=== PATIENT | female | born 1970 | race Caucasian/White ===

== ENCOUNTER 2018-03-03 11:53 | Inpatient (IN) ==
--- NOTE | 2018-03-04 02:43 | P.HPIM ---
History of Present Illness Primary Care Physician: Everardo Romero History of Present Illness: 47-year-old female with a history of anxiety and asthma presented to the ED with complaints of abdominal pain. Patient states she had sudden abdominal pain after eating a Chick-rosita-A sandwich in her right upper quadrant with radiation to her back, 7/10, sharp, constant, worse with food better with rest with no associated symptoms. She denies any chest pain, shortness of breath, fever or chills. Inpatient Certification: I certify that the inpatient services were ordered in accordance with Medicare regulations governing the order. This includes certification that hospital inpatient services are reasonable and necessary and in the case of services not specified as inpatient-only under 42 CFR 419.22(n), that they are appropriately provided as inpatient services in accordance to with the 2-midnight benchmark under 43 CFR 412.3(e) Estimated Total Length of Stay (Days): 2 Plans for Post Hospital Care: Home Review of Systems All other systems reviewed negative except as stated in HPI PMFSH - History History Provided By: Patient - Medical History Medical History: Medical History (Last Reviewed 03/04/18 @ 02:44 by Ines Reyna RN) Anxiety Asthma Encounter for Essure implantation Uterine fibroid - Surgical History Surgical History: Surgical History (Last Reviewed 03/04/18 @ 02:44 by Ines Reyna RN) H/O section History of endometrial ablation - Social History I have reviewed the patient's Social History: Yes - Tobacco History Second Hand Smoke Exposure: No Smoking Status: Never smoker - Alcohol History How Often Do You Have a Drink Containing Alcohol: Never - Substance Use History Substance History: No History of Abuse - Immunization History Tetanus Immunization: Unsure Hx Influenza Vaccine This Season: No Medications and Allergies Active Medications: Active Medications Sodium Chloride (Ns Inj) 1,000 mls @ 100 mls/hr IV.CONT .Q10H RONEL Ondansetron HCl (Zofran Inj) 4 mg IV.PUSH Q6H PRN PRN Reason: NAUSEA OR VOMITING Allergies Allergy/AdvReac Type Severity Reaction Status Date / Time No Known Allergies Allergy Unverified 03/03/18 12:08 Home Medications Medication Instructions Recorded Confirmed Type No Known Home Medications 03/03/18 03/03/18 History Exam Vital signs: Intake & Output 03/03/18 03/03/18 03/04/18 06:59 18:59 06:59 Other: Date of Last Bowel Movement 03/02/18 Narrative: GENERAL: This is a well-nourished, well-developed patient, in no apparent distress. CARDIOVASCULAR: Regular rate and rhythm without murmurs, gallops, or rubs. RESPIRATORY: Clear to auscultation. Breath sounds equal bilaterally. No wheezes , rales, or rhonchi. GASTROINTESTINAL: Abdomen soft, RUQ tenderness, nondistended. Normal active bowel sounds MUSCULOSKELETAL: Extremities without clubbing, cyanosis, or edema. NEURO: Alert & Oriented x4 to person, place, time, situation. Moves all ext x4 Caprini VTE Risk Assessment Caprini VTE Risk Assessment: No/Low Risk (score <= 1) Caprini Risk Assessment Model: Point Value = 1 Point Value = 2 Point Value = 3 Point Value = 5 Age 41-60 Minor surgery BMI > 25 kg/m2 Swollen legs Varicose veins or History of unexplained or recurrent spontaneous Oral contraceptives or hormone replacement Sepsis (< 1 month) Serious lung disease, including pneumonia (< 1 month) Abnormal pulmonary function Acute myocardial infarction Congestive heart failure (< 1 month) History of inflammatory bowel disease Medical patient at bed rest Age 61-74 Arthroscopic surgery Major open surgery (> 45 min) Laparoscopic surgery (> 45 min) Malignancy Confined to bed (> 72 hours) Immobilizing plaster cast Central venous access Age >= 75 History of VTE Family history of VTE Factor V Leiden Prothrombin [id number] Lupus anticoagulant Anticardiolipin antibodies Elevated serum homocysteine Heparin-induced thrombocytopenia Other congenital or acquired thrombophilia Stroke (< 1 month) Elective arthroplasty Hip, pelvis, or leg fracture Acute spinal cord injury (< 1 month) Prophylaxis Regimen: Total Risk Factor Score Risk Level Prophylaxis Regimen 0-1 Low Early ambulation 2 Moderate Order ONE of the following: *Sequential Compression Device (SCD) *Heparin 5000 units SQ BID 3-4 Higher Order ONE of the following medications: *Heparin 5000 units SQ TID *Enoxaparin/Lovenox 40 mg SQ daily (WT < 150 kg, CrCl > 30 mL/min) *Enoxaparin/Lovenox 30 mg SQ daily (WT < 150 kg, CrCl > 10-29 mL/min) *Enoxaparin/Lovenox 30 mg SQ BID (WT < 150 kg, CrCl > 30 mL/min) AND/OR *Sequential Compression Device (SCD) 5 or more Highest Order ONE of the following medications: *Heparin 5000 units SQ TID (Preferred with Epidurals) *Enoxaparin/Lovenox 40 mg SQ daily (WT < 150 kg, CrCl > 30 mL/min) *Enoxaparin/Lovenox 30 mg SQ daily (WT < 150 kg, CrCl > 10-29 mL/min) *Enoxaparin/Lovenox 30 mg SQ BID (WT < 150 kg, CrCl > 30 mL/min) AND *Sequential Compression Device (SCD) Assessment and Plan - Plan Cholecystitis Abdominal CT reviewed and shows abnormal gallbladder with findings concerning for cholecystitis Consult to general surgery N.p.o., IVF Pain management with IV morphine DVT prophylaxis: SCDs Discussed Condition With: Patient and RN H&P: Quality - VTE Deep Vein Thrombosis/Pulmonary Embolism Present on Admission: No
[2018-03-04] MEDS: Sod Chloride 0.9% Inj 1,000 ML IV.CONT SCH ×2 (03:28→12:36)
[2018-03-04] MEDS: Morphine Inj 4 MG/ML Vial IV.PUSH PRN ×2 (04:51→16:25)
--- NOTE | 2018-03-04 11:30 | P.PN ---
Subjective Interval history: Doing well overnight, NPO since admission. Reports pain well controlled with pain meds. Reports pain is sharping, starts in RUQ and radiates to back. Denies emesis, diarrhea, fever and chills. +nausea Physical Exam Vital signs: Vital Signs 03/04/18 04:00 03/04/18 04:15 03/04/18 08:00 Temperature 98 F 97.8 F Pulse Rate 58 L 59 L Respiratory Rate 16 14 20 Blood Pressure 110/58 L 116/64 Pulse Oximetry 99 98 Intake & Output 03/03/18 03/04/18 03/04/18 18:59 06:59 18:59 Other: # Voids 1 Date of Last Bowel Movement 03/02/18 Narrative: GENERAL: well nourished female, in NAD, pleasant SKIN: Warm and dry. HEENT: Normocephalic. No scleral icterus. No injection or drainage. MOM. NECK: Supple, trachea midline. No JVD or lymphadenopathy. CARDIOVASCULAR: Regular rate and rhythm without murmurs, gallops, or rubs. RESPIRATORY: Breath sounds equal bilaterally. No accessory muscle use. GASTROINTESTINAL: Abdomen soft, non-tender, nondistended. +Chavarria's sign. Neg rebound tenderness. MUSCULOSKELETAL: No cyanosis, or edema. BACK: Nontender without obvious deformity. No CVA tenderness. Assessment and Plan - Plan 47 y/o F with admitted for IP mgmt of Cholecystitis, HD#1 1. Cholecystitis: Abdominal CT: abnormal gallbladder with findings concerning for cholecystitis Consult to general surgery- surgery today NPO since midnight Morphine IV PRN pain CBC/CMP in AM DVT prophylaxis: SCD's Code Status: full Discussed Condition With: patient
--- NOTE | 2018-03-04 13:02 | P.CON ---
History of Present Illness Consult date: 03/04/18 Reason for Consult: Acute cholecystitis Primary Care Provider: Everardo Romero History of Present Illness: Patient is a 47-year-old female who developed severe abdominal pain after eating a Chick-rosita-A sandwich. The pain is in her right upper quadrant radiating through to the back. She reported nausea but no emesis and no change in bowel habits. She is not sure whether she has had symptoms like this in the past but may simply have had some heartburn. CT scan performed and [place] demonstrates contracted and thickened gallbladder wall with a calcified gallstone in the neck of the gallbladder. Findings are concerning for cholecystitis. The patient also has bilateral ovarian cysts 2.2 cm on the left and 2 cm on the right. There is no acute inflammation. Review of Systems All other systems reviewed negative except as stated in HPI PMFSH - History History Provided By: Patient - Medical History Medical History: Medical History (Last Reviewed 03/04/18 @ 12:58 by Lanre Manzano MD) Anxiety Asthma Encounter for Essure implantation Uterine fibroid - Surgical History Surgical History: Surgical History (Last Reviewed 03/04/18 @ 12:59 by Lanre Manzano MD) H/O section History of endometrial ablation - Family History Family History: Family History (Last Reviewed 03/04/18 @ 12:59 by Lanre Manzano MD) Mother HLD (hyperlipidemia) Diabetes HTN (hypertension) Father HLD (hyperlipidemia) Father HLD (hyperlipidemia) - Social History I have reviewed the patient's Social History: Yes - Tobacco History Second Hand Smoke Exposure: No Smoking Status: Never smoker - Alcohol History How Often Do You Have a Drink Containing Alcohol: Never - Substance Use History Substance History: No History of Abuse - Immunization History Tetanus Immunization: Unsure Hx Influenza Vaccine This Season: No Medications and Allergies Active Medications: Active Medications Sodium Chloride (Ns Inj) 1,000 mls @ 100 mls/hr IV.CONT .Q10H RONEL Last Admin: 03/04/18 12:36 Dose: 100 mls/hr Morphine Sulfate (Morphine Inj) 2 mg IV.PUSH Q3H PRN PRN Reason: pain 1 to 10 Last Admin: 03/04/18 04:51 Dose: 2 mg Ondansetron HCl (Zofran Inj) 4 mg IV.PUSH Q6H PRN PRN Reason: NAUSEA OR VOMITING Allergies Allergy/AdvReac Type Severity Reaction Status Date / Time No Known Allergies Allergy Verified 03/04/18 06:30 Home Medications Medication Instructions Recorded Confirmed Type No Known Home Medications 03/03/18 03/04/18 History Physical Exam Vital signs: Vital Signs 03/04/18 04:00 03/04/18 04:15 03/04/18 08:00 Temperature 98 F 97.8 F Pulse Rate 58 L 59 L Respiratory Rate 16 14 20 Blood Pressure 110/58 L 116/64 Pulse Oximetry 99 98 Intake & Output 03/03/18 03/04/18 03/04/18 18:59 06:59 18:59 Intake Total 1000 / 1000 Balance 1000 / 1000 Intake: IV 1000 / 1000 NS Inj 1,000 ML @ 100 mls/hr IV 1000 / 1000 .CONT .Q10H RONEL Rx#:[id number] Other: # Voids 1 Date of Last Bowel Movement 03/02/18 - Constitutional mild distress, obese - Routine HEENT Exam Head: Present: normocephalic, atraumatic - Routine Neck Exam Present: supple - Routine Respiratory Exam Present: CTA bilaterally - Routine Cardiovascular Exam Present: RRR - Routine Abdominal Exam Present: soft, tenderness (Right upper quadrant, epigastrium, right lower quadrant, CVA tenderness), guarding (Right upper quadrant and epigastrium) - Routine Neurological Exam Present: alert, oriented X3, CN II-XII intact - Detailed Neurological Exam: Coma Scale Verbal Response: Oriented Motor Response: Obey commands - Routine Psychiatric Exam Present: normal affect, cooperative, good insight, good judgment, anxious Assessment and Plan - Assessment (1) Acute cholecystitis due to biliary calculus Code(s): K80.00 - Calculus of gallbladder with acute cholecystitis without obstruction Status: Acute Plan: Laparoscopic cholecystectomy, possible intraoperative cholangiogram, possible open cholecystectomy. I have discussed risks of the procedure with the patient including but not limited to: Bleeding, infection, bile duct injury, bowel injury, possible need for postoperative endoscopy with ERCP, possible need for drainage, possible need for reoperation. I discussed remedies, consequences, convalescence, and alternatives. She vocalizes understanding and agrees to proceed. We will attempt to perform this today so that she may be discharged in a timely fashion. - Plan Discussed Condition With: Patient Nurse [id number] - Attending Attestation I attest that I had a [id number] encounter with the patient on the same day, and personally performed and documented my assessment and findings in the medical record. The following services were provided during this hospital visit: Chart data review, vital sign assessments/reviewing monitor data Review of consultation notes if present Medication orders/review and/or management Ordering and/or reviewing lab tests Ordering and/or interpreting/reviewing x-rays and/or diagnostic studies Care of the patient and discussion of the patient with the care team Documentation time To help prompt me to consider important information that might be impacting today's encounter and assessment, Information from prior notes written by myself or my colleagues may have been "brought forward/copy and pasted" into today's note.
[2018-03-04] MEDS ORDERED: Bupivacaine/Epinephrine Inj 0.25% 50 ML Vial ONE (13:19)
[2018-03-04] MEDS ORDERED: Sodium Chlor 0.9% Inj 500 ML IV.CONT ONE (13:45)
[2018-03-04] MEDS ORDERED: Metoprolol Tartrate 25 MG Tablet PO ONE (13:45)
[2018-03-04] MEDS ORDERED: Chlorhexidine Gluconate 2% 1 Pack (2 Cloths) TOPICAL ONE (13:45)
[2018-03-04] MEDS ORDERED: Ketorolac Inj 30 MG/ML (IVP) Vial IV.PUSH ONE (14:00)
[2018-03-04] MEDS ORDERED: Lidocaine PF 1% Inj 5 ML Syringe OTHER ONE (14:00)
[2018-03-04] MEDS ORDERED: Sugammadex Inj 200 MG/2 ML Vial IV.PUSH ONE (14:37)
[2018-03-04] MEDS ORDERED: fentaNYL Citrate Inj 1,000 MCG/20 ML Vial ONE (15:03)
[2018-03-04] MEDS ORDERED: fentaNYL Citrate Inj 100 MCG/2 ML Ampul ONE (15:04)
[2018-03-04] MEDS ORDERED: *Promethazine Inj 25 MG/ML Vial PERIprocedural use ONLY ONE (15:16)
[2018-03-04] MEDS ORDERED: *Meperidine Inj 25 MG/ML Vial PERIprocedural Use ONLY ONE (15:23)
--- NOTE | 2018-03-04 15:24 | P.OP ---
- Preoperative Diagnosis (1) Acute cholecystitis due to biliary calculus - Postoperative Diagnosis (1) Acute cholecystitis due to biliary calculus Date of procedure: 03/04/18 Procedure: Laparoscopic cholecystectomy Anesthesia: MAREK Surgeon: Lanre Manzano MD Measuring Clerk: Brayden William CFA Estimated blood loss (mL): 10 IV fluids (mL): 600 Pathology: other (Gallbladder and contents to pathology) Operation and Findings: Patient was taken to the operating room and placed on the operating table in the supine position. After adequate level of general endotracheal anesthesia was achieved, the abdomen was prepped and draped. Time-out was taken, confirming the correct patient, site, and procedure to be performed. Skin and subcutaneous tissue was infiltrated with local anesthetic and an incision made in the umbilicus and carried through the fascia sharply. The peritoneal cavity was directly visualized. A 12 mm balloon trocar was inserted and the balloon inflated. The abdomen was insufflated. The patient was placed in reverse Trendelenburg position. Three 5 mm trocars were placed, with the first to the right of the falciform ligament and second and third in the right subcostal region. All entered the abdominal cavity under direct vision uneventfully. The fundus of the gallbladder was grasped and retracted up and over the dome of the liver. The cystic duct infundibular junction and cystic artery were both circumferentially dissected. The cystic artery was doubly clipped proximally singly clipped on the gallbladder side and divided. The cystic duct was doubly clipped distally singly clipped on the gallbladder side and divided as well. As the patient had essentially normal liver function tests and clearly defined anatomy, cholangiogram was not obtained. The gallbladder was dissected off of the liver bed with electrodissection. An additional single clip was placed on a structure that was coursing up toward the posterior wall of the gallbladder and appeared to be an accessory small cystic artery. The gallbladder was then completely dissected off of the liver bed, placed into an Endo Catch device, and removed via the umbilical port while observing via the upper 5 mm trocar site. The upper abdomen was re-visualized. The cystic artery stumps, cystic duct stump, and liver bed were all seen to be clean and dry. Insufflation was discontinued and the upper abdominal trocars removed under direct vision after placing the patient briefly in Trendelenburg position and photographing the ovaries with known cysts and the uterus with fibroids. No bleeding was noted from the trocar sites. The laparoscope and umbilical port were removed. The fascia was closed in the umbilicus with both simple interrupted and [id number] 0 Vicryl suture. The remaining local anesthetic was injected into each of the trocar sites. The skin was closed at each of the trocar sites with 4-0 Vicryl in an interrupted buried fashion. All wounds were dressed with Steri-Strips. The patient was extubated and taken back to the recovery room in stable condition. Sponge and needle counts were reported to be correct.
[2018-03-04 20:09] LABS: Calcium 8.4 mg/dL (8.5-10.1); Carbon Dioxide 25.2 meq/L (21.0-32.0)
[2018-03-05] MEDS: Sod Chloride 0.9% Inj 1,000 ML IV.CONT SCH ×2 (04:58→08:49)
[2018-03-05] MEDS: Morphine Inj 4 MG/ML Vial IV.PUSH PRN (04:59)
[2018-03-05 08:48] VITALS: RESP 16
[2018-03-05 09:46] LABS: Baso % (Auto) 0.3 % (0.0-2.0); Eos % (Auto) 0.1 % (0.0-4.0); Hematocrit 32.6 % (35.0-46.0); Hemoglobin 10.9 gm/dL (11.6-15.3); Lymph # (Auto) 1.3 th/mm3 (1.0-4.8); Lymph % (Auto) 15.3 % (9.0-44.0); Mean Corpuscular HGB Conc 33.3 % (32.0-36.0); Mean Corpuscular Hemoglobin 28.3 pg (27.0-34.0); Mean Corpuscular Volume 84.9 fL (80.0-100.0); Mean Platelet Volume 8.7 fL (7.0-11.0); Mono # (Auto) 0.5 th/mm3 (0.0-0.9); Mono % (Auto) 5.9 % (0.0-8.0); Neut # (Auto) 6.8 th/mm3 (1.8-7.7); Neut % (Auto) 78.4 % (16.0-70.0); Platelet Count 211 th/mm3 (150-450); Red Blood Count 3.84 mil/mm3 (4.00-5.30); White Blood Count 8.6 th/mm3 (4.0-11.0)
[2018-03-05 10:17] LABS: Anion Gap 8 meq/L (5-15); Blood Urea Nitrogen 5 mg/dL (7-18); Calcium 8.6 mg/dL (8.5-10.1); Carbon Dioxide 28.2 meq/L (21.0-32.0); Chloride 107 meq/L (98-107); Glomerular Filtration Rate Greater Than 89 mL/min (>89); Glucose,Random 107 mg/dL (74-106); Potassium 3.6 meq/L (3.5-5.1); Sodium 143 meq/L (136-145)
[2018-03-05] MEDS ORDERED: Bisacodyl 10 MG Supp RECTAL PRN (10:55)
--- NOTE | 2018-03-05 11:01 | P.PNIM ---
Subjective Interval history: Pt seen and examined. S/P lap agustin POD1. Endorses some post-op discomfort but abdominal pain is resolved. Denies N/V, diarrhea. Tolerating broth. Ready to advance diet. Required some morphine earlier this morning but feels her pain can be controlled with PO. Would like to hopefully be discharged today. She has passed gas but hasn't had a BM. She states it's been several days since she last had a BM. Physical Exam Vital signs: Vital Signs 03/04/18 12:00 03/04/18 14:56 03/04/18 15:00 Temperature 97.9 F 97.5 F L Pulse Rate 56 L 94 H 88 Respiratory Rate 18 12 10 L Blood Pressure 115/59 L 118/66 129/65 Pulse Oximetry 97 96 100 03/04/18 15:15 03/04/18 15:30 03/04/18 15:45 Temperature Pulse Rate 77 68 55 L Respiratory Rate 12 12 14 Blood Pressure 120/74 124/75 142/64 H Pulse Oximetry 99 99 100 03/04/18 15:56 03/04/18 16:00 03/04/18 16:33 Temperature 98.0 F 97.9 F Pulse Rate 55 L 56 L Respiratory Rate 14 14 16 Blood Pressure 132/66 134/65 Pulse Oximetry 96 97 03/04/18 20:00 03/05/18 00:00 03/05/18 02:08 Temperature 98.1 F 97.4 F L Pulse Rate 72 63 Respiratory Rate 14 13 14 Blood Pressure 111/57 L 115/59 L Pulse Oximetry 98 97 03/05/18 08:00 Temperature 97.8 F Pulse Rate 75 Respiratory Rate 16 Blood Pressure 124/58 L Pulse Oximetry 96 Intake & Output 03/04/18 03/05/18 03/05/18 18:59 06:59 18:59 Intake Total 1800 / 1800 500 / 500 Output Total Balance 1790 / 1790 500 / 500 Intake: IV 1200 / 1200 NS Inj 1,000 ML @ 100 mls/hr IV 1200 / 1200 .CONT .Q10H RONEL Rx#:[id number] Oral 500 / 500 Anesthesia Amount 600 / 600 Output: Estimated Blood Loss Other: # Voids 2 3 Date of Last Bowel Movement 03/02/18 03/02/18 Narrative: GENERAL: WN, WD female resting in bed in NAD. SKIN: Warm and dry. HEENT: AT/NC. Pupils equal and round. MMM. NECK: Supple no tender LAD or JVD. HEART: RRR no m/r/g. LUNGS: CTAB without wheezes or crackles. ABDOMEN: +BS, soft, NT, ND. Lap incisions C/D/I. EXTREMITIES: No LE edema. 2+ pedal pulses. NEURO: Awake and alert. Nonfocal. PSYCH: Appropriate mood and affect. Results - Labs CBC & Chem 7: 03/05/18 09:25 03/05/18 09:25 Laboratory Results - last 24 hr 03/04/18 03/05/18 03/05/18 18:26 09:25 09:25 WBC 8.6 RBC 3.84 L Hgb 10.9 L Hct 32.6 L MCV 84.9 MCH 28.3 MCHC 33.3 RDW 13.0 Plt Count 211 MPV 8.7 Neut % (Auto) 78.4 H Lymph % (Auto) 15.3 [place] % (Auto) 5.9 Eos % (Auto) 0.1 Baso % (Auto) 0.3 Neut # (Auto) 6.8 Lymph # (Auto) 1.3 [place] # (Auto) 0.5 Eos # (Auto) 0.0 Baso # (Auto) 0.0 WBC Differential . Differential Comment Auto diff final Sodium 140 143 Potassium 4.0 3.6 Chloride 106 107 Carbon Dioxide 25.2 28.2 Anion Gap 9 8 BUN 4 L 5 L Creatinine 0.74 0.68 Estimated GFR 84 L Greater than 89 Random Glucose 120 H 107 H Calcium 8.4 L 8.6 Assessment and Plan - Assessment (1) Cholecystitis Code(s): K81.9 - Cholecystitis, unspecified Status: Acute - Plan 47 year old female admitted on 03/04 for acute cholecystitis. 1. Cholecystitis Afebrile and no leukocytosis, LFTs WNL CT A/P showed contracted gallbladder with wall thickening and pericholecystic fluid with a 8.7 mm calcified stone in the neck General surgery consulted S/p laparoscopic cholecystectomy POD 1 Tolerating clears ADAT Pain control DVT prophylaxis: ambulatory Discussed Condition With: Patient Discharge Planning: D/C hopefully later today if patient tolerates diet well, pain is controlled, and is cleared by general surgery
[2018-03-05] MEDS ORDERED: Senna/Docusate Sodium 8.6/50 MG Tablet PO ONE (11:15)
--- NOTE | 2018-03-05 11:49 | P.PNGS ---
Subjective Interval history: Doing well Has been OOB to bathroom Hungry Physical Exam Vital signs: Vital Signs 03/04/18 12:00 03/04/18 14:56 03/04/18 15:00 Temperature 97.9 F 97.5 F L Pulse Rate 56 L 94 H 88 Respiratory Rate 18 12 10 L Blood Pressure 115/59 L 118/66 129/65 Pulse Oximetry 97 96 100 03/04/18 15:15 03/04/18 15:30 03/04/18 15:45 Temperature Pulse Rate 77 68 55 L Respiratory Rate 12 12 14 Blood Pressure 120/74 124/75 142/64 H Pulse Oximetry 99 99 100 03/04/18 15:56 03/04/18 16:00 03/04/18 16:33 Temperature 98.0 F 97.9 F Pulse Rate 55 L 56 L Respiratory Rate 14 14 16 Blood Pressure 132/66 134/65 Pulse Oximetry 96 97 03/04/18 20:00 03/05/18 00:00 03/05/18 02:08 Temperature 98.1 F 97.4 F L Pulse Rate 72 63 Respiratory Rate 14 13 14 Blood Pressure 111/57 L 115/59 L Pulse Oximetry 98 97 03/05/18 08:00 Temperature 97.8 F Pulse Rate 75 Respiratory Rate 16 Blood Pressure 124/58 L Pulse Oximetry 96 Intake & Output 03/04/18 03/05/18 03/05/18 18:59 06:59 18:59 Intake Total 1800 / 1800 500 / 500 Output Total 10 / 10 Balance 1790 / 1790 500 / 500 Intake: IV 1200 / 1200 NS Inj 1,000 ML @ 100 mls/hr IV 1200 / 1200 .CONT .Q10H [facility] Rx#:[id number] Oral 500 / 500 Anesthesia Amount 600 / 600 Output: Estimated Blood Loss 10 10 Other: # Voids 2 3 Date of Last Bowel Movement 03/02/18 03/02/18 Narrative: Alert and awake Abd: soft; non tender; lap sites c/d/i with Steri strips in place No edema - Routine Abdominal Exam Present: wound (Steristrips dry and intact) Results - Labs 03/05/18 09:25 03/05/18 09:25 Assessment and Plan - Assessment (1) Acute cholecystitis due to biliary calculus Code(s): K80.00 - Calculus of gallbladder with acute cholecystitis without obstruction Status: Acute Plan: 47 year old female POD1 lap agustin -Advance diet -Pain control -OOB -GS clear to DC after lunch if no issues -Rx for [place] on chart -Follow up with Dr. Manzano 03/13 at 3:10PM Discussed with patient and at bedside; will determine return to work on her office visit The exam, history, and the medical decision-making described in the above note were completed with the assistance of the mid-level provider. I reviewed and agree with the findings presented. I attest that I had a [id number] encounter with the patient on the same day, and personally performed and documented my assessment and findings in the medical record.
[2018-03-05 13:03] VITALS: BP 116/63; PULSE 66; TEMP 98; O2SAT 98
[2018-03-05] MEDS ORDERED: Senna/Docusate Sodium 8.6/50 MG Tablet PO SCH (21:00)
== END 2018-03-05 16:00 | disposition home or self-care (01) ==
LOC: NEDDLT 11:53 → N06 03-04 02:10
PROVIDERS: ADMIT Family Medicine; ATTEND Family Medicine